=== PATIENT | female | born 1940 | race Two or more races ===

== ENCOUNTER 2021-06-26 11:58 | Inpatient (IN) | payer MEDICARE ==
[~2021-06-26] VITALS: Ht 162.6 cm; Wt 75.3 kg
[2021-06-26] MEDS ORDERED: MORPHINE SULFATE INJ 2 MG/ML DISP.SYRIN IV ONE (12:30)
[2021-06-26] MEDS ORDERED: ONDANSETRON HCL/PF 4 MG/2 ML VIAL IVP ONE (12:30)
[2021-06-26] MEDS ORDERED: IV NS 0.9% 1,000 ML BAG IV ONE ×2 (12:30→13:00)
[2021-06-26] MEDS ORDERED: ONDANSETRON HCL/PF 4 MG/2 ML VIAL ONE (12:34)
[2021-06-26] MEDS ORDERED: MORPHINE SULFATE INJ 4 MG/ML DISP.SYRIN ONE (12:35)
[2021-06-26 12:38] LABS: BASOPHILS % (AUTO) 0.1 % (0.0-2.0); EOSINOPHILS % (AUTO) 0.2 % (0.0-6.0); HEMATOCRIT 42 % (33-45); HEMOGLOBIN 14.2 g/dL (11.5-14.8); LYMPHOCYTES # (AUTO) 0.6 K/uL (0.8-4.8); MEAN CORPUSCULAR HGB CONC 34 g/dl (31.0-36.0); MEAN CORPUSCULAR VOLUME 86 fL (82-100); MONOCYTES # (AUTO) 0.1 K/uL (0.1-1.30); NEUTROPHILS # (AUTO) 2.2 K/uL (1.8-8.9); NEUTROPHILS % (AUTO) 76.7 % (43.0-81.0); PLATELET COUNT (AUTO) 309 K/uL (150-450); RED BLOOD CELL COUNT(AUTO) 4.86 MIL/uL (4.0-5.2); WHITE BLOOD COUNT (AUTO) 2.9 K/uL (4.3-11.0)
[2021-06-26 12:51] LABS: ALANINE AMINOTRANSFERASE 34 U/L (12-78); ALBUMIN 3.1 g/dL (3.4-5.0); ALKALINE PHOSPHATASE 44 U/L (46-116); ASPARTATE AMINOTRANSFERASE 22 U/L (15-37); BILIRUBIN,DIRECT 0.3 mg/dL (0.0-0.2); BILIRUBIN,TOTAL 0.8 mg/dL (0.2-1.0); CALCIUM, SERUM 8.8 mg/dL (8.5-10.1); CARBON DIOXIDE 28 mmol/L (21-32); CHLORIDE 88 mmol/L (98-107); CREATININE 1.2 mg/dL (0.6-1.3); GLUCOSE 197 mg/dL (74-106); LIPASE 48 U/L (73-393); SODIUM SERUM 125 mmol/L (136-145); TOTAL PROTEIN, SERUM 6.1 g/dL (6.4-8.2); UREA NITROGEN, BLOOD 28 mg/dL (7-18)
[2021-06-26 12:54] LABS: POTASSIUM 2.5 mmol/L (3.5-5.1)
[2021-06-26] MEDS ORDERED: IV NS 0.9% 250 ML IV ONE (13:01)
[2021-06-26] MEDS ORDERED: CT SWABBABLE VALVE TRANS SET 1 EA INFUS.SET MC ONE (13:01)
[2021-06-26] MEDS ORDERED: IOHEXOL-300 100 ML VIAL IV ONE (13:01)
[2021-06-26] MEDS ORDERED: POTASSIUM CL. PREMIX PERIPHER. 50 ML ONE (13:18)
[2021-06-26] MEDS ORDERED: PIPERACILLIN /TAZOBACTAM 3.375 G in IV D5W 50 ML IV ONE (13:30)
[2021-06-26] MEDS: POTASSIUM CL. PREMIX PERIPHER. 50 ML IV SCH ×7 (13:37→23:29)
[2021-06-26 13:42] LABS: BAND % (MANUAL) 10 % (0.0-5.0); LYMPHOCYTES % (MANUAL) 28 % (16-48); MONOCYTES % (MANUAL) 6 % (0-11.0); NEUTROPHILS % (MANUAL) 56 (42-76)
[2021-06-26] MEDS ORDERED: HYDROMORPHONE 1 MG/1 ML DISP.SYRIN ONE (13:51)
[2021-06-26] MEDS ORDERED: HYDROMORPHONE 1 MG/1 ML DISP.SYRIN IV ONE (14:00)
[2021-06-26] MEDS ORDERED: PANTOPRAZOLE 40 MG VIAL ONE (14:15)
[2021-06-26] MEDS ORDERED: PANTOPRAZOLE 40 MG VIAL IV ONE (14:30)
[2021-06-26] MEDS ORDERED: MORPHINE SULFATE INJ 2 MG/ML DISP.SYRIN IV PRN ×2 (15:30→17:15)
[2021-06-26] MEDS ORDERED: Z GUARD REMEDY 4 OZ OINT TP PRN ×2 (15:30→17:15)
[2021-06-26] MEDS ORDERED: HYDROCODONE/APAP 5/325MG TABLET PO PRN ×2 (15:30→17:15)
[2021-06-26] MEDS ORDERED: MAG HYDROX/AL HYDROX/SIMETH 30 ML UDC PO PRN ×2 (15:30→17:15)
[2021-06-26] MEDS ORDERED: ACETAMINOPHEN 325 MG TABLET PO PRN ×2 (15:30→17:15)
[2021-06-26] MEDS ORDERED: MAGNESIUM HYDROXIDE 30 ML UDC PO PRN (15:30)
[2021-06-26] MEDS ORDERED: ZOLPIDEM TARTRATE 5 MG TABLET PO PRN ×2 (15:30→17:15)
[2021-06-26] MEDS ORDERED: ONDANSETRON HCL/PF 4 MG/2 ML VIAL IVP PRN ×2 (15:30→17:15)
[2021-06-26] MEDS ORDERED: POTASSIUM CL. PREMIX PERIPHER. 50 ML IV SCH (16:00)
[2021-06-26] MEDS ORDERED: FENTANYL PF 250MCG/5ML AMPUL ONE (16:42)
[2021-06-26] MEDS ORDERED: HYDROMORPHONE INJ 2 MG/ML DISP.SYRIN ONE (16:42)
[2021-06-26] MEDS ORDERED: FAMOTIDINE/PF INJ 20 MG/2 ML VIAL IV ONE (16:43)
[2021-06-26] MEDS ORDERED: MIDAZOLAM HCL 2 MG/2ML VIAL ONE (16:43)
[2021-06-26] MEDS ORDERED: ROCURONIUM BROMIDE 50 MG/5 ML ONE (16:44)
[2021-06-26] MEDS ORDERED: LIDOCAINE 1% INJ 50 ML MDV IJ ONE (17:05)
[2021-06-26] MEDS ORDERED: BUPIVACAINE MPF 0.5% W/EPI INJ 30 ML VIAL ONE (17:05)
[2021-06-26] MEDS ORDERED: ANESTHESIA TRAY IN PYXIS 1 EA TRAY MC ONE (17:05)
[2021-06-26] MEDS ORDERED: METHYLENE BLUE 10 ML VIAL ONE (18:46)
[2021-06-26] MEDS ORDERED: IV NS 0.9% 250 ML IV PRN (21:30)
[2021-06-26] MEDS ORDERED: IV PREMIX D5 1/2NS + KCL 1,000 ML IV ONE (21:54)
[2021-06-26] MEDS: IV PREMIX D5 1/2NS + KCL 1,000 ML IV SCH (21:59)
[2021-06-26] MEDS ORDERED: PIPERACILLIN /TAZOBACTAM 3.375 G in IV D5W 100 ML IV SCH (22:00)
[2021-06-26 22:01] VITALS: BP 114/51
[2021-06-26] MEDS ORDERED: PIPERACILLIN /TAZOBACTAM 3.375 G VIAL IV ONE (22:15)
[2021-06-26] MEDS: PIPERACILLIN /TAZOBACTAM 3.375 G in IV D5W 100 ML IV SCH (22:16)
[2021-06-26 23:00] VITALS: BP 120/61
[2021-06-26 23:13] LABS: ABG BASE EXCESS -10.2 mmol/L; ABG OXYGEN SATURATION 96.7 % (92.0-98.5); ABG PCO2 57.9 mmHg (35.0-45.0); ABG PO2 108.4 mmHg (75.0-100.0); COHb 0.8 % (0.5-1.5); MetHb 0.3 % (0.0-1.5); O2Hb 95.6 % (94.0-97.0); PEEP,BG 5 cm H2O; SITE, ABG Right Brachial; VENT MODE, BG AC 12 400 50% +5; VT, ABG 400 mL
[2021-06-27] VITALS (30 sets, daily range): BP systolic 77–147; BP diastolic 39–78
[2021-06-27] MEDS: POTASSIUM CL. PREMIX PERIPHER. 50 ML IV SCH ×3 (00:42→02:59)
[2021-06-27] MEDS ORDERED: PROPOFOL 100 ML IV PRN (01:00)
[2021-06-27] MEDS ORDERED: POTASSIUM CL. PREMIX PERIPHER. 100 ML ONE (01:41)
[2021-06-27] MEDS ORDERED: PIPERACILLIN /TAZOBACTAM 3.375 G VIAL IV ONE (05:56)
[2021-06-27] MEDS: PIPERACILLIN /TAZOBACTAM 3.375 G in IV D5W 100 ML IV SCH ×3 (05:58→21:09)
[2021-06-27] MEDS ORDERED: HYDROMORPHONE 1 MG/1 ML DISP.SYRIN IV PRN (06:30)
[2021-06-27] MEDS: IV PREMIX D5 1/2NS + KCL 1,000 ML IV SCH (06:33)
[2021-06-27 07:08] LABS: CALCIUM, SERUM 7.3 mg/dL (8.5-10.1); CARBON DIOXIDE 19 mmol/L (21-32); CHLORIDE 100 mmol/L (98-107); CREATININE 1.2 mg/dL (0.6-1.3); GLUCOSE 140 mg/dL (74-106); POTASSIUM 4.7 mmol/L (3.5-5.1); SODIUM SERUM 130 mmol/L (136-145); UREA NITROGEN, BLOOD 25 mg/dL (7-18)
[2021-06-27] MEDS: PANTOPRAZOLE 40 MG VIAL IV SCH ×2 (08:35→21:07)
[2021-06-27] MEDS: IV NS 0.9% 1,000 ML IV PRN ×2 (08:45→18:36)
[2021-06-27] MEDS ORDERED: DC PROPOFOL WHEN EXTUBATED XX PRN (09:00)
[2021-06-27] MEDS ORDERED: ASPIRIN 81 MG TAB.CHEW PO SCH ×2 (09:00)
[2021-06-27] MEDS ORDERED: PANTOPRAZOLE 40 MG VIAL IV SCH ×2 (09:00)
[2021-06-27 10:34] LABS: ABG BASE EXCESS -6.9 mmol/L; ABG OXYGEN SATURATION 97.9 % (92.0-98.5); ABG PCO2 30.1 mmHg (35.0-45.0); ABG PH 7.375 (7.350-7.450); ABG PO2 139.4 mmHg (75.0-100.0); AaDO2 111.2 mmHg; MetHb 0.3 % (0.0-1.5); O2Hb 97.6 % (94.0-97.0); SITE, ABG Right Radial; VENT MODE, BG SIMV 4 PS15
[2021-06-27 11:37] LABS: BASOPHILS % (AUTO) 0.1 % (0.0-2.0); EOSINOPHILS % (AUTO) 0.2 % (0.0-6.0); HEMATOCRIT 33 % (33-45); HEMOGLOBIN 11.3 g/dL (11.5-14.8); LYMPHOCYTES # (AUTO) 0.6 K/uL (0.8-4.8); LYMPHOCYTES % (AUTO) 7.2 % (20.0-44.0); MEAN CORPUSCULAR HGB CONC 34 g/dl (31.0-36.0); MEAN CORPUSCULAR VOLUME 87 fL (82-100); MONOCYTES # (AUTO) 0.1 K/uL (0.1-1.30); MONOCYTES % (AUTO) 0.8 % (2.0-12.0); NEUTROPHILS # (AUTO) 7.8 K/uL (1.8-8.9); NEUTROPHILS % (AUTO) 91.7 % (43.0-81.0); PLATELET COUNT (AUTO) 211 K/uL (150-450); RED BLOOD CELL COUNT(AUTO) 3.79 MIL/uL (4.0-5.2); WHITE BLOOD COUNT (AUTO) 8.5 K/uL (4.3-11.0)
[2021-06-28] VITALS (38 sets, daily range): BP systolic 93–144; BP diastolic 39–123
[2021-06-28] MEDS ORDERED: ADENOSINE 6 MG/2 ML VIAL IVP STA (01:02)
[2021-06-28] MEDS ORDERED: ADENOSINE 6 MG/2 ML VIAL IVP ONE (01:30)
[2021-06-28] MEDS ORDERED: AMIODARONE 150 MG/3 ML VIAL IV ONE (01:57)
[2021-06-28] MEDS ORDERED: AMIODARONE 150 MG in IV D5W 100 ML IV ONE ×2 (02:00→17:30)
[2021-06-28] MEDS: AMIODARONE 450 MG in IV D5W 241 ML IV PRN ×3 (02:20→17:56)
[2021-06-28 04:17] LABS: BASOPHILS % (AUTO) 0.2 % (0.0-2.0); EOSINOPHILS % (AUTO) 0.5 % (0.0-6.0); HEMATOCRIT 27 % (33-45); HEMOGLOBIN 9.1 g/dL (11.5-14.8); LYMPHOCYTES # (AUTO) 0.5 K/uL (0.8-4.8); LYMPHOCYTES % (AUTO) 5.6 % (20.0-44.0); MEAN CORPUSCULAR HGB CONC 34 g/dl (31.0-36.0); MEAN CORPUSCULAR VOLUME 86 fL (82-100); MONOCYTES # (AUTO) 0.2 K/uL (0.1-1.30); MONOCYTES % (AUTO) 1.7 % (2.0-12.0); NEUTROPHILS # (AUTO) 8.2 K/uL (1.8-8.9); PLATELET COUNT (AUTO) 138 K/uL (150-450); RED BLOOD CELL COUNT(AUTO) 3.07 MIL/uL (4.0-5.2); WHITE BLOOD COUNT (AUTO) 8.9 K/uL (4.3-11.0)
[2021-06-28 04:28] LABS: ALBUMIN 1.6 g/dL (3.4-5.0); BILIRUBIN,TOTAL 0.3 mg/dL (0.2-1.0); CALCIUM, SERUM 7.3 mg/dL (8.5-10.1); CREATININE 1.2 mg/dL (0.6-1.3); MAGNESIUM 1.4 mg/dL (1.8-2.4); PHOSPHORUS 3.2 mg/dL (2.5-4.9); POTASSIUM 4.1 mmol/L (3.5-5.1); TOTAL PROTEIN, SERUM 4.3 g/dL (6.4-8.2)
[2021-06-28] MEDS: IV NS 0.9% 1,000 ML IV PRN ×2 (04:39→16:18)
[2021-06-28] MEDS: PIPERACILLIN /TAZOBACTAM 3.375 G in IV D5W 100 ML IV SCH ×3 (06:14→21:23)
[2021-06-28] MEDS: PANTOPRAZOLE 40 MG VIAL IV SCH ×2 (08:40→20:04)
[2021-06-28] MEDS: Magnesium 1GM/D5W 100ML PREMIX 100 ML IV SCH ×2 (09:48→10:48)
[2021-06-29] VITALS: BP 134/51
[2021-06-29] MEDS: IV NS 0.9% 1,000 ML IV PRN ×2 (02:03→12:32)
[2021-06-29] MEDS: AMIODARONE 450 MG in IV D5W 241 ML IV PRN ×2 (02:09→15:34)
[2021-06-29 04:00] VITALS: BP 159/73
[2021-06-29] MEDS: PIPERACILLIN /TAZOBACTAM 3.375 G in IV D5W 100 ML IV SCH ×3 (05:07→18:06)
[2021-06-29 08:00] VITALS: BP 148/65
[2021-06-29] MEDS: PANTOPRAZOLE 40 MG VIAL IV SCH ×2 (08:42→21:44)
[2021-06-29 10:49] LABS: BASOPHILS % (AUTO) 0.1 % (0.0-2.0); HEMATOCRIT 25 % (33-45); HEMOGLOBIN 8.7 g/dL (11.5-14.8); LYMPHOCYTES # (AUTO) 0.3 K/uL (0.8-4.8); LYMPHOCYTES % (AUTO) 3.9 % (20.0-44.0); MEAN CORPUSCULAR HGB CONC 34 g/dl (31.0-36.0); MEAN CORPUSCULAR VOLUME 87 fL (82-100); MONOCYTES # (AUTO) 0.2 K/uL (0.1-1.30); MONOCYTES % (AUTO) 2.3 % (2.0-12.0); NEUTROPHILS # (AUTO) 8.2 K/uL (1.8-8.9); NEUTROPHILS % (AUTO) 92.7 % (43.0-81.0); PLATELET COUNT (AUTO) 116 K/uL (150-450); RED BLOOD CELL COUNT(AUTO) 2.92 MIL/uL (4.0-5.2); WHITE BLOOD COUNT (AUTO) 8.8 K/uL (4.3-11.0)
[2021-06-29 10:58] LABS: CALCIUM, SERUM 7.1 mg/dL (8.5-10.1); CREATININE 0.8 mg/dL (0.6-1.3); POTASSIUM 3.2 mmol/L (3.5-5.1)
[2021-06-29 11:05] LABS: ALBUMIN 1.5 g/dL (3.4-5.0); BILIRUBIN,TOTAL 0.4 mg/dL (0.2-1.0); MAGNESIUM 1.5 mg/dL (1.8-2.4); PHOSPHORUS 2.2 mg/dL (2.5-4.9); TOTAL PROTEIN, SERUM 4.6 g/dL (6.4-8.2)
[2021-06-29 12:00] VITALS: BP 147/88
[2021-06-29 16:00] VITALS: BP 144/63
[2021-06-29] MEDS ORDERED: Sodium Phosphate 15 MMOL in IV NS 0.9% 245 ML IV SCH (18:00)
[2021-06-29 20:00] VITALS: BP 169/57
[2021-06-29] MEDS: Magnesium 1GM/D5W 100ML PREMIX 100 ML IV SCH ×2 (20:12→21:22)
[2021-06-29] MEDS: POTASSIUM CL. PREMIX PERIPHER. 50 ML IV SCH ×4 (20:24→23:26)
[2021-06-29] MEDS: hydrALAZINE HCL IV 20 MG VIAL IV PRN (21:43)
[2021-06-30] VITALS (7 sets, daily range): BP systolic 130–168; BP diastolic 51–73
[2021-06-30] MEDS ORDERED: Sodium Phosphate 15 MMOL in IV NS 0.9% 245 ML IV ONE (01:00)
[2021-06-30] MEDS: PIPERACILLIN /TAZOBACTAM 3.375 G in IV D5W 100 ML IV SCH ×3 (01:52→17:02)
[2021-06-30] MEDS ORDERED: AMIODARONE 150 MG in IV D5W 100 ML IV ONE (04:30)
[2021-06-30] MEDS ORDERED: AMIODARONE 150 MG/3 ML VIAL IV ONE ×2 (04:33→04:35)
[2021-06-30] MEDS: AMIODARONE 450 MG in IV D5W 241 ML IV PRN ×2 (05:02→16:36)
[2021-06-30] MEDS: IV NS 0.9% 1,000 ML IV PRN ×2 (06:47→17:12)
[2021-06-30 07:36] LABS: EOSINOPHILS % (AUTO) 0.5 % (0.0-6.0); HEMATOCRIT 31 % (33-45); HEMOGLOBIN 10.6 g/dL (11.5-14.8); LYMPHOCYTES # (AUTO) 0.3 K/uL (0.8-4.8); LYMPHOCYTES % (AUTO) 4.7 % (20.0-44.0); MEAN CORPUSCULAR HGB CONC 35 g/dl (31.0-36.0); MEAN CORPUSCULAR VOLUME 86 fL (82-100); MONOCYTES # (AUTO) 0.3 K/uL (0.1-1.30); MONOCYTES % (AUTO) 4.6 % (2.0-12.0); NEUTROPHILS # (AUTO) 6.6 K/uL (1.8-8.9); NEUTROPHILS % (AUTO) 90.2 % (43.0-81.0); PLATELET COUNT (AUTO) 144 K/uL (150-450); RED BLOOD CELL COUNT(AUTO) 3.57 MIL/uL (4.0-5.2); WHITE BLOOD COUNT (AUTO) 7.3 K/uL (4.3-11.0)
[2021-06-30 07:42] LABS: ALBUMIN 1.6 g/dL (3.4-5.0); BILIRUBIN,DIRECT 0.1 mg/dL (0.0-0.2); BILIRUBIN,TOTAL 0.5 mg/dL (0.2-1.0); CALCIUM, SERUM 7.6 mg/dL (8.5-10.1); CREATININE 0.7 mg/dL (0.6-1.3); MAGNESIUM 1.9 mg/dL (1.8-2.4); PHOSPHORUS 2.6 mg/dL (2.5-4.9); TOTAL PROTEIN, SERUM 4.9 g/dL (6.4-8.2)
[2021-06-30] MEDS: POTASSIUM CL. PREMIX PERIPHER. 50 ML IV SCH ×6 (09:00→15:18)
[2021-06-30] MEDS: PANTOPRAZOLE 40 MG VIAL IV SCH ×2 (09:00→20:24)
[2021-06-30] MEDS: METOCLOPRAMIDE HCL 10 MG/2 ML VIAL IV SCH ×3 (09:14→20:24)
[2021-06-30] MEDS: hydrALAZINE HCL IV 20 MG VIAL IV PRN (20:26)
[2021-07-01] VITALS: BP 157/61
[2021-07-01] MEDS: PIPERACILLIN /TAZOBACTAM 3.375 G in IV D5W 100 ML IV SCH ×3 (01:31→17:33)
[2021-07-01] MEDS: IV NS 0.9% 1,000 ML IV PRN ×2 (03:42→17:34)
[2021-07-01 04:00] VITALS: BP 137/76
[2021-07-01] MEDS: METOCLOPRAMIDE HCL 10 MG/2 ML VIAL IV SCH ×3 (05:04→20:53)
[2021-07-01] MEDS: hydrALAZINE HCL IV 20 MG VIAL IV PRN (07:46)
[2021-07-01 08:00] VITALS: BP 181/71
[2021-07-01] MEDS: PANTOPRAZOLE 40 MG VIAL IV SCH ×2 (09:05→20:53)
[2021-07-01] MEDS: AMIODARONE HCL 200 MG TABLET PO SCH ×3 (09:06→17:35)
[2021-07-01 09:14] LABS: BASOPHILS % (AUTO) 0.1 % (0.0-2.0); EOSINOPHILS % (AUTO) 0.2 % (0.0-6.0); HEMATOCRIT 27 % (33-45); HEMOGLOBIN 9.5 g/dL (11.5-14.8); LYMPHOCYTES # (AUTO) 0.4 K/uL (0.8-4.8); LYMPHOCYTES % (AUTO) 6.2 % (20.0-44.0); MEAN CORPUSCULAR HGB CONC 35 g/dl (31.0-36.0); MEAN CORPUSCULAR VOLUME 85 fL (82-100); MONOCYTES # (AUTO) 0.3 K/uL (0.1-1.30); MONOCYTES % (AUTO) 5.2 % (2.0-12.0); NEUTROPHILS # (AUTO) 5.1 K/uL (1.8-8.9); NEUTROPHILS % (AUTO) 88.3 % (43.0-81.0); PLATELET COUNT (AUTO) 163 K/uL (150-450); RED BLOOD CELL COUNT(AUTO) 3.19 MIL/uL (4.0-5.2); WHITE BLOOD COUNT (AUTO) 5.8 K/uL (4.3-11.0)
[2021-07-01 09:34] LABS: ALBUMIN 1.5 g/dL (3.4-5.0); BILIRUBIN,DIRECT 0.2 mg/dL (0.0-0.2); BILIRUBIN,TOTAL 0.5 mg/dL (0.2-1.0); CALCIUM, SERUM 7.7 mg/dL (8.5-10.1); CREATININE 0.6 mg/dL (0.6-1.3); MAGNESIUM 1.5 mg/dL (1.8-2.4); PHOSPHORUS 1.8 mg/dL (2.5-4.9); POTASSIUM 3.3 mmol/L (3.5-5.1); TOTAL PROTEIN, SERUM 4.7 g/dL (6.4-8.2)
[2021-07-01 12:00] VITALS: BP 151/58
[2021-07-01] MEDS ORDERED: MAGNESIUM OXIDE 400 MG TABLET PO ONE (13:00)
[2021-07-01] MEDS ORDERED: POLYETHYLENE GLYCOL 3350 17 GM POWD.PACK PO PRN (13:00)
[2021-07-01] MEDS: POTASSIUM CHLORIDE 20 MEQ TAB.PRT.SR PO SCH ×2 (13:20→14:48)
[2021-07-01] MEDS: Magnesium 1GM/D5W 100ML PREMIX 100 ML IV SCH ×2 (13:20→14:48)
[2021-07-01 16:00] VITALS: BP 150/60
[2021-07-01] MEDS: NEOMY SULF/BACITRAC ZN/POLY 15 GM TUBE TP SCH (16:30)
[2021-07-01] MEDS ORDERED: Sodium Phosphate 30 MMOL in IV NS 0.9% 250 ML IV SCH (17:00)
[2021-07-01 20:00] VITALS: BP 152/67
[2021-07-02] VITALS (7 sets, daily range): BP systolic 139–171; BP diastolic 43–70
[2021-07-02] MEDS: PIPERACILLIN /TAZOBACTAM 3.375 G in IV D5W 100 ML IV SCH ×3 (02:50→17:53)
[2021-07-02] MEDS: hydrALAZINE HCL IV 20 MG VIAL IV PRN ×2 (04:52→10:58)
[2021-07-02] MEDS: METOCLOPRAMIDE HCL 10 MG/2 ML VIAL IV SCH ×3 (04:53→21:25)
[2021-07-02 07:34] LABS: BASOPHILS % (AUTO) 0.1 % (0.0-2.0); EOSINOPHILS % (AUTO) 0.5 % (0.0-6.0); HEMATOCRIT 27 % (33-45); HEMOGLOBIN 9.1 g/dL (11.5-14.8); LYMPHOCYTES # (AUTO) 0.4 K/uL (0.8-4.8); LYMPHOCYTES % (AUTO) 6.7 % (20.0-44.0); MEAN CORPUSCULAR HGB CONC 34 g/dl (31.0-36.0); MEAN CORPUSCULAR VOLUME 85 fL (82-100); MONOCYTES # (AUTO) 0.4 K/uL (0.1-1.30); NEUTROPHILS # (AUTO) 5.4 K/uL (1.8-8.9); NEUTROPHILS % (AUTO) 86.7 % (43.0-81.0); PLATELET COUNT (AUTO) 198 K/uL (150-450); RED BLOOD CELL COUNT(AUTO) 3.11 MIL/uL (4.0-5.2); WHITE BLOOD COUNT (AUTO) 6.2 K/uL (4.3-11.0)
[2021-07-02 07:36] LABS: CALCIUM, SERUM 7.8 mg/dL (8.5-10.1); CREATININE 0.6 mg/dL (0.6-1.3); MAGNESIUM 1.7 mg/dL (1.8-2.4); POTASSIUM 3.2 mmol/L (3.5-5.1)
[2021-07-02] MEDS: NEOMY SULF/BACITRAC ZN/POLY 15 GM TUBE TP SCH ×2 (08:10→17:49)
[2021-07-02] MEDS: PANTOPRAZOLE 40 MG VIAL IV SCH (08:12)
[2021-07-02] MEDS: AMIODARONE HCL 200 MG TABLET PO SCH ×3 (08:13→17:52)
[2021-07-02] MEDS: Magnesium 1GM/D5W 100ML PREMIX 100 ML IV SCH ×2 (08:48→09:56)
[2021-07-02] MEDS: POTASSIUM CHLORIDE 20 MEQ TAB.PRT.SR PO SCH ×3 (08:48→11:07)
[2021-07-02] MEDS: LISINOPRIL (20MG) 20 MG TABLET PO SCH (11:09)
[2021-07-02] MEDS: PANTOPRAZOLE 40 MG TABLET.DR PO SCH (15:41)
[2021-07-02] MEDS: ENSURE CLEAR 237 ML LIQUID (MIX BERRY) PO SCH (17:49)
[2021-07-02] MEDS: HEPARIN SODIUM, PORCINE 5000 UNITS/1 ML VIAL SQ SCH (21:28)
[2021-07-03] VITALS: BP 157/72
[2021-07-03] MEDS: PIPERACILLIN /TAZOBACTAM 3.375 G in IV D5W 100 ML IV SCH ×3 (02:37→17:18)
[2021-07-03 04:00] VITALS: BP 151/70
[2021-07-03] MEDS: METOCLOPRAMIDE HCL 10 MG/2 ML VIAL IV SCH ×3 (05:39→20:57)
[2021-07-03 07:21] LABS: BASOPHILS % (AUTO) 0.3 % (0.0-2.0); HEMATOCRIT 27 % (33-45); LYMPHOCYTES # (AUTO) 0.6 K/uL (0.8-4.8); LYMPHOCYTES % (AUTO) 8.2 % (20.0-44.0); MEAN CORPUSCULAR HGB CONC 34 g/dl (31.0-36.0); MEAN CORPUSCULAR VOLUME 86 fL (82-100); MONOCYTES # (AUTO) 0.4 K/uL (0.1-1.30); MONOCYTES % (AUTO) 5.3 % (2.0-12.0); NEUTROPHILS # (AUTO) 6.6 K/uL (1.8-8.9); NEUTROPHILS % (AUTO) 85.2 % (43.0-81.0); PLATELET COUNT (AUTO) 262 K/uL (150-450); WHITE BLOOD COUNT (AUTO) 7.8 K/uL (4.3-11.0)
[2021-07-03 08:00] VITALS: BP 188/62
[2021-07-03] MEDS: PANTOPRAZOLE 40 MG TABLET.DR PO SCH ×2 (08:21→15:38)
[2021-07-03] MEDS: AMIODARONE HCL 200 MG TABLET PO SCH ×3 (08:22→16:04)
[2021-07-03] MEDS: LISINOPRIL (20MG) 20 MG TABLET PO SCH (08:22)
[2021-07-03] MEDS: NEOMY SULF/BACITRAC ZN/POLY 15 GM TUBE TP SCH ×2 (08:23→16:19)
[2021-07-03] MEDS: ENSURE CLEAR 237 ML LIQUID (MIX BERRY) PO SCH ×2 (08:23→16:18)
[2021-07-03] MEDS: IV NS 0.9% 1,000 ML IV PRN ×2 (08:41→22:42)
[2021-07-03 08:50] LABS: CALCIUM, SERUM 8.4 mg/dL (8.5-10.1); CREATININE 0.7 mg/dL (0.6-1.3); MAGNESIUM 1.9 mg/dL (1.8-2.4); PHOSPHORUS 2.6 mg/dL (2.5-4.9); POTASSIUM 3.8 mmol/L (3.5-5.1)
[2021-07-03] MEDS: HEPARIN SODIUM, PORCINE 5000 UNITS/1 ML VIAL SQ SCH ×2 (09:29→20:58)
[2021-07-03] MEDS: NITROGLYCERIN 30 GM TUBE TP SCH ×2 (10:43→21:01)
[2021-07-03 12:00] VITALS: BP 165/66
[2021-07-03] MEDS: hydrALAZINE HCL 50 MG TABLET PO SCH ×2 (12:08→16:03)
[2021-07-03] MEDS: MAGNESIUM HYDROXIDE 30 ML UDC PO PRN (14:28)
[2021-07-03 16:00] VITALS: BP 159/50
[2021-07-03 20:00] VITALS: BP 149/56
[2021-07-04] VITALS: BP 150/61
[2021-07-04] MEDS: PIPERACILLIN /TAZOBACTAM 3.375 G in IV D5W 100 ML IV SCH ×3 (02:11→17:11)
[2021-07-04 04:00] VITALS: BP 136/52
[2021-07-04] MEDS: METOCLOPRAMIDE HCL 10 MG/2 ML VIAL IV SCH ×3 (05:11→20:11)
[2021-07-04 07:05] LABS: BASOPHILS % (AUTO) 0.2 % (0.0-2.0); EOSINOPHILS % (AUTO) 1.1 % (0.0-6.0); HEMATOCRIT 24 % (33-45); HEMOGLOBIN 8.2 g/dL (11.5-14.8); LYMPHOCYTES # (AUTO) 0.6 K/uL (0.8-4.8); LYMPHOCYTES % (AUTO) 7.9 % (20.0-44.0); MEAN CORPUSCULAR HGB CONC 34 g/dl (31.0-36.0); MEAN CORPUSCULAR VOLUME 88 fL (82-100); MONOCYTES # (AUTO) 0.4 K/uL (0.1-1.30); MONOCYTES % (AUTO) 5.8 % (2.0-12.0); PLATELET COUNT (AUTO) 287 K/uL (150-450); RED BLOOD CELL COUNT(AUTO) 2.76 MIL/uL (4.0-5.2); WHITE BLOOD COUNT (AUTO) 7.1 K/uL (4.3-11.0)
[2021-07-04 07:34] LABS: CALCIUM, SERUM 8.2 mg/dL (8.5-10.1); CREATININE 0.6 mg/dL (0.6-1.3); MAGNESIUM 1.7 mg/dL (1.8-2.4); PHOSPHORUS 3.1 mg/dL (2.5-4.9); POTASSIUM 3.8 mmol/L (3.5-5.1)
[2021-07-04 08:00] VITALS: BP 151/59
[2021-07-04] MEDS: PANTOPRAZOLE 40 MG TABLET.DR PO SCH ×2 (08:01→17:09)
[2021-07-04] MEDS: ENSURE CLEAR 237 ML LIQUID (MIX BERRY) PO SCH ×2 (08:02→17:10)
[2021-07-04] MEDS: hydrALAZINE HCL 50 MG TABLET PO SCH ×3 (08:26→17:00)
[2021-07-04] MEDS: LISINOPRIL (20MG) 20 MG TABLET PO SCH ×2 (08:27→17:00)
[2021-07-04] MEDS: AMIODARONE HCL 200 MG TABLET PO SCH ×3 (08:27→17:09)
[2021-07-04] MEDS: NITROGLYCERIN 30 GM TUBE TP SCH ×2 (08:28→20:13)
[2021-07-04] MEDS: HEPARIN SODIUM, PORCINE 5000 UNITS/1 ML VIAL SQ SCH ×2 (08:35→20:12)
[2021-07-04] MEDS: NEOMY SULF/BACITRAC ZN/POLY 15 GM TUBE TP SCH ×2 (08:49→17:10)
[2021-07-04] MEDS: Magnesium 1GM/D5W 100ML PREMIX 100 ML IV SCH ×2 (09:27→10:18)
[2021-07-04] MEDS: AMLODIPINE BESYLATE 10 MG TABLET PO SCH (09:27)
[2021-07-04 12:00] VITALS: BP 118/46
[2021-07-04 16:00] VITALS: BP 115/45
[2021-07-04 17:18] LABS: ABG BASE EXCESS -6.1 mmol/L; ABG OXYGEN SATURATION 97.6 % (92.0-98.5); ABG PCO2 25.5 mmHg (35.0-45.0); ABG PO2 116.4 mmHg (75.0-100.0); AaDO2 110.7 mmHg; COHb 0.3 % (0.5-1.5); MetHb 0.3 % (0.0-1.5); SITE, ABG Right Radial; VENT MODE, BG NASAL CANNULA
[2021-07-04 20:00] VITALS: BP 137/47
[2021-07-04] MEDS: MAGNESIUM HYDROXIDE 30 ML UDC PO PRN (20:15)
[2021-07-05] VITALS: BP 134/45
[2021-07-05] MEDS: PIPERACILLIN /TAZOBACTAM 3.375 G in IV D5W 100 ML IV SCH ×2 (01:56→09:47)
[2021-07-05 04:00] VITALS: BP 132/55
[2021-07-05] MEDS: IV NS 0.9% 1,000 ML IV PRN (05:07)
[2021-07-05] MEDS: METOCLOPRAMIDE HCL 10 MG/2 ML VIAL IV SCH ×3 (05:07→21:00)
[2021-07-05] MEDS: PANTOPRAZOLE 40 MG TABLET.DR PO SCH ×2 (07:26→16:26)
[2021-07-05 08:00] VITALS: BP 159/58
[2021-07-05 08:24] LABS: BASOPHILS % (AUTO) 0.4 % (0.0-2.0); HEMATOCRIT 24 % (33-45); LYMPHOCYTES # (AUTO) 0.6 K/uL (0.8-4.8); LYMPHOCYTES % (AUTO) 8.9 % (20.0-44.0); MEAN CORPUSCULAR HGB CONC 33 g/dl (31.0-36.0); MEAN CORPUSCULAR VOLUME 87 fL (82-100); MONOCYTES # (AUTO) 0.4 K/uL (0.1-1.30); MONOCYTES % (AUTO) 4.9 % (2.0-12.0); NEUTROPHILS # (AUTO) 6.1 K/uL (1.8-8.9); NEUTROPHILS % (AUTO) 84.8 % (43.0-81.0); PLATELET COUNT (AUTO) 341 K/uL (150-450); RED BLOOD CELL COUNT(AUTO) 2.77 MIL/uL (4.0-5.2); WHITE BLOOD COUNT (AUTO) 7.2 K/uL (4.3-11.0)
[2021-07-05] MEDS: ENSURE CLEAR 237 ML LIQUID (MIX BERRY) PO SCH ×2 (08:29→18:08)
[2021-07-05] MEDS: AMLODIPINE BESYLATE 10 MG TABLET PO SCH (08:39)
[2021-07-05] MEDS: LISINOPRIL (20MG) 20 MG TABLET PO SCH ×2 (08:39→16:26)
[2021-07-05] MEDS: hydrALAZINE HCL 50 MG TABLET PO SCH ×3 (08:39→16:26)
[2021-07-05] MEDS: AMIODARONE HCL 200 MG TABLET PO SCH ×3 (08:40→16:26)
[2021-07-05] MEDS: NITROGLYCERIN 30 GM TUBE TP SCH ×2 (08:40→21:01)
[2021-07-05] MEDS: NEOMY SULF/BACITRAC ZN/POLY 15 GM TUBE TP SCH ×2 (08:41→16:25)
[2021-07-05 08:55] LABS: ALBUMIN 1.5 g/dL (3.4-5.0); BILIRUBIN,DIRECT 0.1 mg/dL (0.0-0.2); BILIRUBIN,TOTAL 0.3 mg/dL (0.2-1.0); CALCIUM, SERUM 8.7 mg/dL (8.5-10.1); CREATININE 0.6 mg/dL (0.6-1.3); MAGNESIUM 1.9 mg/dL (1.8-2.4); PHOSPHORUS 3.1 mg/dL (2.5-4.9); POTASSIUM 3.8 mmol/L (3.5-5.1); TOTAL PROTEIN, SERUM 4.9 g/dL (6.4-8.2)
[2021-07-05] MEDS: HEPARIN SODIUM, PORCINE 5000 UNITS/1 ML VIAL SQ SCH ×2 (08:55→21:03)
[2021-07-05 12:00] VITALS: BP 150/46
[2021-07-05 16:18] VITALS: BP 133/47
[2021-07-05 20:00] VITALS: BP 97/39
[2021-07-06] VITALS: BP 139/53
[2021-07-06 04:00] VITALS: BP 137/52
[2021-07-06] MEDS: METOCLOPRAMIDE HCL 10 MG/2 ML VIAL IV SCH ×3 (04:52→20:48)
[2021-07-06] MEDS: ENSURE CLEAR 237 ML LIQUID (MIX BERRY) PO SCH ×2 (07:44→16:17)
[2021-07-06] MEDS: PANTOPRAZOLE 40 MG TABLET.DR PO SCH ×2 (07:44→15:31)
[2021-07-06 08:00] VITALS: BP 124/60
[2021-07-06] MEDS: AMLODIPINE BESYLATE 10 MG TABLET PO SCH (08:44)
[2021-07-06] MEDS: hydrALAZINE HCL 50 MG TABLET PO SCH ×3 (08:44→16:15)
[2021-07-06] MEDS: AMIODARONE HCL 200 MG TABLET PO SCH ×3 (08:45→16:17)
[2021-07-06] MEDS: NEOMY SULF/BACITRAC ZN/POLY 15 GM TUBE TP SCH ×2 (08:45→16:17)
[2021-07-06] MEDS: LISINOPRIL (20MG) 20 MG TABLET PO SCH ×2 (08:45→16:16)
[2021-07-06] MEDS: NITROGLYCERIN 30 GM TUBE TP SCH ×2 (08:48→20:50)
[2021-07-06] MEDS: HEPARIN SODIUM, PORCINE 5000 UNITS/1 ML VIAL SQ SCH ×2 (08:50→20:49)
[2021-07-06 12:00] VITALS: BP 124/60
[2021-07-06] MEDS ORDERED: LISI20TA30 PO (13:10)
[2021-07-06] MEDS ORDERED: HYDR-4077 PO (13:10)
[2021-07-06] MEDS ORDERED: PANT40TA49 PO (13:10)
[2021-07-06] MEDS ORDERED: AMIO200T7 PO (13:10)
[2021-07-06 16:00] VITALS: BP 127/47
[2021-07-06 20:00] VITALS: BP 132/49
[2021-07-07] VITALS: BP 125/55
[2021-07-07 04:00] VITALS: BP 122/64
[2021-07-07] MEDS: METOCLOPRAMIDE HCL 10 MG/2 ML VIAL IV SCH ×2 (04:29→12:29)
[2021-07-07] MEDS: PANTOPRAZOLE 40 MG TABLET.DR PO SCH ×2 (07:19→16:24)
[2021-07-07] MEDS: ENSURE CLEAR 237 ML LIQUID (MIX BERRY) PO SCH ×2 (07:20→16:25)
[2021-07-07 08:00] VITALS: BP 138/57
[2021-07-07] MEDS: AMIODARONE HCL 200 MG TABLET PO SCH ×2 (08:45→16:24)
[2021-07-07] MEDS: LISINOPRIL (20MG) 20 MG TABLET PO SCH ×2 (08:45→16:25)
[2021-07-07] MEDS: AMLODIPINE BESYLATE 10 MG TABLET PO SCH (08:45)
[2021-07-07] MEDS: hydrALAZINE HCL 50 MG TABLET PO SCH ×3 (08:46→16:24)
[2021-07-07] MEDS: HEPARIN SODIUM, PORCINE 5000 UNITS/1 ML VIAL SQ SCH (08:56)
[2021-07-07] MEDS: NEOMY SULF/BACITRAC ZN/POLY 15 GM TUBE TP SCH ×2 (08:57→16:25)
[2021-07-07] MEDS: NITROGLYCERIN 30 GM TUBE TP SCH (08:58)
[2021-07-07 12:00] VITALS: BP 139/59
[2021-07-07 16:00] VITALS: BP 132/58
[2021-07-07 16:25] VITALS: BP 132/58
== END 2021-07-07 17:58 | DRG 329 ==
LOC: ER 12:04 → ICU 17:27 → TELE-TD 06-28 12:10 → TELE1 07-03 18:19 → MEDSG1 07-06 10:03 → TELE1 07-07 06:28
PROVIDERS: ADMIT Student in an Organized Health Care Education/Training Program; ATTEND Internal Medicine
PROC: 0DU947Z Supplement Duodenum with Autologous Tissue Substitute, Percutaneous Endoscopic Approach (ICD-10-PCS; principal; 2021-06-27)
PROC: 05HC33Z Insertion of Infusion Device into Left Basilic Vein, Percutaneous Approach (ICD-10-PCS; 2021-06-27)
DX: K26.5 Chronic or unspecified duodenal ulcer with perforation (principal); J18.9 Pneumonia, unspecified organism; I21.A1 Myocardial infarction type 2; N17.0 Acute kidney failure with tubular necrosis; J96.01 Acute respiratory failure with hypoxia; J96.02 Acute respiratory failure with hypercapnia; E44.1 Mild protein-calorie malnutrition; E87.1 Hypo-osmolality and hyponatremia; E87.2 Acidosis; J98.11 Atelectasis; R18.8 Other ascites; J90 Pleural effusion, not elsewhere classified; K56.7 Ileus, unspecified; Z20.822 Contact with and (suspected) exposure to COVID-19; I10 Essential (primary) hypertension; Z90.49 Acquired absence of other specified parts of digestive tract; Z88.2 Allergy status to sulfonamides; E87.6 Hypokalemia; E86.0 Dehydration; E83.42 Hypomagnesemia; D70.9 Neutropenia, unspecified; Z90.710 Acquired absence of both cervix and uterus; Z87.891 Personal history of nicotine dependence; Z83.3 Family history of diabetes mellitus; Z80.1 Family history of malignant neoplasm of trachea, bronchus and lung; Z82.49 Family history of ischemic heart disease and other diseases of the circulatory system; N28.1 Cyst of kidney, acquired; K57.90 Diverticulosis of intestine, part unspecified, without perforation or abscess without bleeding; I48.91 Unspecified atrial fibrillation; E88.09 Other disorders of plasma-protein metabolism, not elsewhere classified; Z98.890 Other specified postprocedural states
CPT/HCPCS: 36410; 36415; 36600; 71045-TC; 74018; 80048-TC; 80053-TC; 80076-TC; 82803-TC; 83605-TC; 83690-TC; 83735-TC; 84100-TC; 84484-TC; 85025-TC; 85730-TC; 86850-TC; 87040-TC; 87081-TC; 93307-TC; 93970-TC; 94002-TC; 94003-TC; 94799-TC; 97116-TC; 97530-TC; A4217; A9563; C9113; C9803; G0378; J0153; J0282; J0360; J0690; J1170; J1644; J2250; J2270; J2405; J2543; J2704; J2765; J3010; J3475; J3480; J3490; J7030; J7050; J7060; Q9967; Q9968